=== PATIENT | male | born 2000 | race Caucasian/White ===

== ENCOUNTER 2020-09-22 19:31 | Emergency (ER) | payer BC ==
[~2020-09-22] VITALS: Ht 170.2 cm; Wt 78.5 kg
[2020-09-22] MEDS ORDERED: LEXAPRO20 MG PO (19:58)
[2020-09-22] MEDS ORDERED: REXULTI0.25 MG PO (19:59)
[2020-09-22 20:56] LABS: MCH 29.8 pg (26.0-34.0); MCV 87.6 fL (80.0-100.0); MPV 9.5 fl. (7.2-11.1); RBC 5.03 mil/uL (4.50-6.00); RDW-CV 13.3 % (10.5-14.5); WBC 11.2 thou/uL (4.0-11.0)
[2020-09-22 21:05] LABS: CALCIUM 9.4 mg/dL (8.5-10.1); CREATININE 0.7 mg/dL (0.6-1.3); POTASSIUM 4.3 mmol/L (3.5-5.1)
[2020-09-22 21:09] LABS: URINE BILIRUBIN NEGATIVE (Negative); URINE BLOOD NEGATIVE (Negative); URINE CLARITY CLOUDY; URINE COLOR YELLOW; URINE GLUCOSE-RANDOM NEGATIVE (Negative); URINE KETONES NEGATIVE (Negative); URINE LEUKOCYTES NEGATIVE (Negative); URINE NITRITE NEGATIVE (Negative); URINE PROTEIN NEGATIVE (Negative); URINE SPECIFIC GRAVITY 1.015 (1.005-1.030)
[2020-09-22 21:10] LABS: TOTAL BILIRUBIN 0.3 mg/dL (<0.1-1.0); TOTAL PROTEIN 6.9 g/dL (6.4-8.2)
[2020-09-22 21:11] LABS: SALICYLATE 5.2 mg/dL (2.8-20.0)
[2020-09-22 21:12] LABS: ACETAMINOPHEN < 2 ug/mL (10-30); ALCOHOL < 10 mg/dL (<10)
[2020-09-22 21:16] LABS: AMP/METHAMP Negative (Negative); BARBITURATES Negative (Negative); BENZODIAZEPINES Negative (Negative); COCAINE Negative (Negative); METHADONE Negative (Negative); OPIATES Negative (Negative); PCP Negative (Negative); THC POSITIVE (Negative)
[2020-09-22 21:18] LABS: AMORPHOUS PHOSPHATES Moderate /LPF (None Seen); BACTERIA None Seen /HPF (None Seen); CASTS None Seen /LPF (None Seen); SQUAMOUS 0-3 Few /LPF (0-3); URINE RBC 0-2 Rare /HPF (0-2); URINE WBC 0-5 Rare /HPF (0-5)
[2020-09-22 23:45] VITALS: BP 115/61
== END 2020-09-22 23:46 | disposition home or self-care (01) ==
LOC: M.ERS 19:31
PROVIDERS: Personal Emergency Response Attendant
DX: R45.851 Suicidal ideations (principal); F32.9 Major depressive disorder, single episode, unspecified; F17.210 Nicotine dependence, cigarettes, uncomplicated

== ENCOUNTER 2021-07-26 13:38 | Emergency (ER) | payer BC ==
[~2021-07-26] VITALS: Ht 170.2 cm; Wt 86.2 kg
[~2021-07-26 13:38] MED LIST: LEXAPRO20 MG PO; REXULTI0.25 MG PO
[2021-07-26 14:15] VITALS: BP 130/82
== END 2021-07-26 15:02 | disposition home or self-care (01) ==
LOC: M.ERS 13:38
DX: K08.89 Other specified disorders of teeth and supporting structures (principal); M25.562 Pain in left knee; J06.9 Acute upper respiratory infection, unspecified; F32.9 Major depressive disorder, single episode, unspecified; F41.9 Anxiety disorder, unspecified; F17.210 Nicotine dependence, cigarettes, uncomplicated; Z79.899 Other long term (current) drug therapy